=== PATIENT | female | born 1955 | race Caucasian/White ===

== ENCOUNTER 2022-07-11 14:57 | Outpatient (OUT) | payer MEDICARE, SELFPAY ==
--- NOTE | 2022-07-11 15:00 | VEIN_ITS ---
Patient: JEIMY GREEN Exam Date: 07/11/2022 : 1955 Gender:F Ordering : DR YARED OLIVAS M.D. Admission #: [id number] Family : Order #: [id number] CLICK HERE TO VIEW EXAM RADIOLOGY REPORT PROCEDURE: [facility] EST [facility] - OFFICE VISIT FOLLOW UP COMPARISON: None. PROGRESS NOTES: The patient reports improvement in leg symptoms. There has been interval reduction in varicosities. The patient has followed our recommendations to walk 20-30 minutes once or twice per day since the procedure. Physical exam demonstrates decrease in varicosities of the bilateral legs. Persistent varicosities are identified along the legs bilaterally. Review of the ultrasound performed the same day demonstrates occlusive thrombus extending throughout the treated vein, see separate report, consistent with a successful ablation. No thrombus extending into or beyond the saphenofemoral junction. The patient expressed a desire to proceed with treatment of remaining incompetent branch saphenous varicosities. The patient was informed that treatment was a process and would require approximately 2 more procedures/sessions. IMPRESSION: 1. Successful ablation of the saphenous vein 2. Persistent incompetent branch saphenous veins and mild bilateral lower extremity symptoms PLAN: Microfoam chemical ablation of remaining incompetent branch saphenous varicosities. Nurse notes, history and physical were reviewed and confirmed, see attached forms. The nurse was present throughout the physical exam and consultation Dictated by: Tirso Driscoll M.D. on 07/11/2022 at 15:26 Approved by: Tirso Driscoll M.D. on 07/11/2022 at 15:38
--- NOTE | 2022-07-11 15:00 | VEIN_ITS ---
Patient: JEIMY GREEN Exam Date: 07/11/2022 : 1955 Gender:F Ordering : DR YARED OLIVAS M.D. Admission #: [id number] Family : Order #: [id number] CLICK HERE TO VIEW EXAM RADIOLOGY REPORT PROCEDURE: VC EXT VENOUS RT LMTD COMPARISON: None. INDICATIONS: Phlebitis of superficial veins of rt lower extremity I80.01 TECHNIQUE: Lower extremity douglas scale and Duplex Doppler evaluation of the deep venous system from the inguinal ligament through the calf veins. FINDINGS: REGION: Right lower extremity. THROMBI: Negative for DVT. Varithena induced thrombus visualized at mid/med calf and medial knee. COMPRESSIBILITY: Non-compressible segments. FLOW: Areas of no flow. OTHER: Multiple patent varicose veins remain. CONCLUSION: 1. Successful post ablation occlusion of treated right leg incompetent branch saphenous varicosities. Dictated by: Tirso Driscoll M.D. on 07/11/2022 at 15:25 Approved by: Tirso Driscoll M.D. on 07/11/2022 at 15:26
== END 2022-07-11 14:58 ==
LOC: VC 14:59
PROVIDERS: PCP Radiology Diagnostic Radiology; Visit Provider Radiology Diagnostic Radiology
DX: I80.01 Phlebitis and thrombophlebitis of superficial vessels of right lower extremity (principal); I83.813 Varicose veins of bilateral lower extremities with pain
CPT/HCPCS: 93971; G0463

== ENCOUNTER 2022-07-26 15:28 | Outpatient (OUT) | payer MEDICARE, SELFPAY ==
--- NOTE | 2022-07-26 | VEIN_ITS ---
[address] [address] Patient Name: JEIMY GREEN MRN: [id number] date: 1955 Sex: F Assigned Patient Location: Current Patient Location: Accession/Order Number: [id number] Exam Date: 07/26/2022 15:15 Report Date: 07/26/2022 16:13 At the request of: YARED OLIVAS Procedure: VC INJ Foam Sclerosant WUS INDUSTRIAL RADIOGRAPHER PROCEDURE: VC INJ Foam Sclerosant WUS INDUSTRIAL RADIOGRAPHER COMPARISON: None. HISTORY: Pain due to varicose veins of bilateral legs I83.813 Pre-operative Diagnosis: CEAP class C6 venous insufficiency with pain, tenderness, edema and incompetent branch saphenous vein(s), chronic venous insufficiency left leg secondary to venous incompetence Post-operative Diagnosis: CEAP class C6 venous insufficiency with pain, tenderness, edema and incompetent branch saphenous vein(s), chronic venous insufficiency left leg secondary to venous incompetence Procedure Performed: 1. Ultrasound-guided microfoam chemical ablation with Varithenaregistered 2. Intraoperative ultrasound guidance Physician: Tirso Driscoll M.D. Anesthesia: None Indications for Procedure: 66 year old female. Symptoms including lower extremity pain, throbbing, dilated veins, ulcer for many years despite conservative medical therapy including medical compression stockings, exercise and analgesics. Prior procedures include endovenous laser ablation and microfoam chemical ablation. Multiple incompetent varicosities of the left leg. Duplex scan showed reflux and enlarged diameters up to 6 mm. The patient underwent informed consent including management options where the complications of infection, bleeding, pain, and skin injury were discussed. Particular attention was spent discussing thrombus extension and deep vein thrombosis as well as the possibility of pulmonary embolus and treatment with oral or injectable blood thinners. Procedure: The patient walked to the procedure room. All applicable staff donned appropriate apparel. A procedure timeout was performed to confirm correct patient, correct extremity, correct procedure, and correct room set-up including presence of all applicable supplies, devices, and drugs. A duplex ultrasound, performed by myself confirmed the location and incompetence of branch saphenous varicosities and their course was marked on the skin together with the dilated tributaries. The extent of treatment of the vein and the associated varicosities was determined through ultrasound mapping. The skin was prepped and then punctured with a butterfly needle and advanced under ultrasound guidance. The Varithenaregistered canister was activated and the canister was primed and purged as required in the instructions for use. Varithenaregistered was drawn into a sterile syringe. Varithenaregistered was slowly administered at 0.5-1.0 cc/second with close observation by ultrasound of its course in the vessels. Total volume utilized was: 15 mL (8 mL intravenous 6 mm varicosity medial and cephalad to the ankle; 7 mL intravenous 6 mm varicosity of the proximal medial lower leg). Following administration of Varithenaregistered the leg was elevated and the patient was asked to repeatedly dorsiflex the ankle to limit flow of Varithenaregistered into perforating veins. Once appropriate spasm had been confirmed in the treated veins, the vascular catheter was removed from the leg and light pressure was applied over the puncture site for hemostasis. The common femoral and deep superficial veins were then evaluated for flow and compressibility prior to dressing placement. The lower extremity was kept elevated at 45 degrees above the horizontal and cording material was applied over the saphenous segments and tributaries to allow for eccentric compression over the target vessels including the targeted saphenous vein(s). A multilayer dressing was applied consisting of foam pads, coban and thigh-high 20-30 mm Hg compression elastic support hose were placed on the patient. The leg was lowered only after compression had been applied and the patient was immediately ambulatory. The patient ambulated 10 minutes under supervision and was without apparent concerns at time of release. Post-care instructions include advising patient to keep post-treatment bandages in place and dry for 48 hours, avoid extended periods of inactivity, avoid heavy exercise for one week, wear compression stockings on the treated leg continuously for two weeks, to walk daily for 10 minutes over the next month. The patient was instructed to take an anti-inflammatory medicine as needed and to follow up for color duplex scan of the Saphenous veins, the treated branch saphenous varicosities, the adjacent deep veins, and additional treatment within 7 days. PERSONNEL: Rafiq Ocampo RN,Karon Love RDMS Electronically authenticated by: TIRSO DRISCOLL Date: 07/26/2022 16:13
== END 2022-07-26 15:29 ==
LOC: VC 15:28
PROVIDERS: PCP Radiology Diagnostic Radiology; Visit Provider Radiology Diagnostic Radiology
DX: I83.813 Varicose veins of bilateral lower extremities with pain (principal)
CPT/HCPCS: 36466

== ENCOUNTER 2022-08-02 15:28 | Outpatient (OUT) | payer MEDICARE, SELFPAY ==
--- NOTE | 2022-08-02 | VEIN_ITS ---
Patient: JEIMY GREEN Exam Date: 08/02/2022 : 1955 Gender:F Ordering : DR RIGO MCKNIGHT M.D. Admission #: [id number] Family : Order #: [id number] CLICK HERE TO VIEW EXAM RADIOLOGY REPORT PROCEDURE: [facility]ILITY EST [facility] - OFFICE VISIT FOLLOW UP COMPARISON: [facility] EST LMTD, 07/11/2022. PROGRESS NOTES: The patient reports no significant problems following micro foam chemical ablation of the left leg. Patient did not require oral analgesics. The patient has worn her compression stocking. The patient has followed our recommendations to walk 20-30 minutes once or twice per day since the procedure. Physical exam demonstrates multiple thrombosed varicose veins. Multiple residual patent varicose veins can be observed and palpated. No areas of erythema or warmth to suggest cellulitis or thrombophlebitis. Ulceration Review of the ultrasound performed the same day demonstrates occlusive thrombus extending throughout the treated close veins period residual varicose veins were observed by ultrasound measuring up to 6.7 mm left and 8 mm right. The patient expressed a desire to proceed with treatment of incompetent varicose veins micro chemical ablation. IMPRESSION: 1. Successful ablation of left leg incompetent varicose veins 2. Persistent bilateral incompetent varicose veins PLAN: Micro foam chemical ablation right leg incompetent varicose veins Nurse notes, history and physical were reviewed and confirmed, see attached forms. The nurse was present throughout the physical exam and consultation Dictated by: Rigo Mcknight MD on 08/03/2022 at 07:09 Approved by: Rigo Mcknight MD on 08/03/2022 at 07:11
--- NOTE | 2022-08-02 | VEIN_ITS ---
Patient: JEIMY GREEN Exam Date: 08/02/2022 : 1955 Gender:F Ordering : DR RIGO OLIVAS M.D. Admission #: [id number] Family : Order #: [id number] CLICK HERE TO VIEW EXAM RADIOLOGY REPORT PROCEDURE: VC EXT VENOUS LT LIMITED COMPARISON: None. INDICATIONS: Phlebitis of superficial veins of left lower extremity I80.02 TECHNIQUE: Lower extremity douglas scale and Duplex Doppler evaluation of the deep venous system from the inguinal ligament through the calf veins. FINDINGS: REGION: Left lower extremity. THROMBI: Negative for DVT. Chemically induced thrombus in varicose veins medial lower leg. COMPRESSIBILITY: Noncompressible segments corresponding to throw FLOW: Absent flow corresponding thrombus OTHER: Patent varicose vein mid fong measures 6.7 mm. Varicose vein mid medial lower leg measures 5.9 mm. *Exam performed in accordance with [facility] practice guidelines- Peripheral venous ultrasound, May 01, 2009. CONCLUSION: Post ablation occlusion of treated left leg varicose veins with residual varicose veins measuring to 6.7 mm Dictated by: Rigo Olivas MD on 08/03/2022 at 07:07 Approved by: Rigo Olivas MD on 08/03/2022 at 07:08
== END 2022-08-02 15:29 | disposition home or self-care (01) ==
LOC: VC 15:28
PROVIDERS: PCP Radiology Diagnostic Radiology; Visit Provider Radiology Diagnostic Radiology
DX: I80.02 Phlebitis and thrombophlebitis of superficial vessels of left lower extremity (principal)
CPT/HCPCS: 93971; G0463

== ENCOUNTER 2022-09-06 15:31 | Outpatient (OUT) | payer MEDICARE, SELFPAY ==
--- NOTE | 2022-09-06 | VEIN_ITS ---
The [address] [address] Patient Name: JEIMY GREEN MRN: [id number] date: 1955 Sex: F Assigned Patient Location: Current Patient Location: Accession/Order Number: [id number] Exam Date: 09/06/2022 15:30 Report Date: 09/06/2022 16:20 At the request of: YARED OLIVAS Procedure: VC INJ Foam Sclerosant WUS SKIDDER PROCEDURE: VC INJ Foam Sclerosant WUS SKIDDER HISTORY: Pain due to varicose veins of bilateral legs I83.813 Pre-operative Diagnosis: CEAP class C6 venous insufficiency with pain, tenderness, edema and incompetent branch saphenous vein(s), chronic venous insufficiency ] leg secondary to venous incompetence Post-operative Diagnosis: CEAP class C6 venous insufficiency with pain, tenderness, edema and incompetent branch saphenous vein(s), chronic venous insufficiency right leg secondary to venous incompetence Procedure Performed: 1. Ultrasound-guided microfoam chemical ablation with Varithenaregistered 2. Intraoperative ultrasound guidance Physician: Tirso Driscoll M.D. Anesthesia: None Indications for Procedure: 66 year old female. Symptoms including lower extremity swelling, dilated bulging veins, aching, heaviness for many years despite conservative medical therapy including medical compression stockings, exercise and analgesics. Prior procedures include endovenous laser ablation and Microfoam chemical ablation. Multiple incompetent varicosities of the right leg. Duplex scan showed reflux and enlarged diameters up to 7 mm mm. The patient underwent informed consent including management options where the complications of infection, bleeding, pain, and skin injury were discussed. Particular attention was spent discussing thrombus extension and deep vein thrombosis as well as the possibility of pulmonary embolus and treatment with oral or injectable blood thinners. Procedure: The patient walked to the procedure room. All applicable staff donned appropriate apparel. A procedure timeout was performed to confirm correct patient, correct extremity, correct procedure, and correct room set-up including presence of all applicable supplies, devices, and drugs. A duplex ultrasound, performed by myself confirmed the location and incompetence of branch saphenous varicosities and their course was marked on the skin together with the dilated tributaries. The extent of treatment of the vein and the associated varicosities was determined through ultrasound mapping. The skin was prepped and then punctured with a butterfly needle and advanced under ultrasound guidance. The Varithenaregistered canister was activated and the canister was primed and purged as required in the instructions for use. Varithenaregistered was drawn into a sterile syringe. Varithenaregistered was slowly administered at 0.5-1.0 cc/second with close observation by ultrasound of its course in the vessels. Total volume utilized was: 15 mL (7 mL within a 6 mm incompetent varicosity of the distal anterior lower right leg; 8 mL within a 7 mm incompetent varicosity of the anterior lateral proximal lower leg). Following administration of Varithenaregistered the leg was elevated and the patient was asked to repeatedly dorsiflex the ankle to limit flow of Varithenaregistered into perforating veins. Once appropriate spasm had been confirmed in the treated veins, the vascular catheter was removed from the leg and light pressure was applied over the puncture site for hemostasis. The common femoral and deep superficial veins were then evaluated for flow and compressibility prior to dressing placement. The lower extremity was kept elevated at 45 degrees above the horizontal and cording material was applied over the saphenous segments and tributaries to allow for eccentric compression over the target vessels including the targeted saphenous vein(s). A multilayer dressing was applied consisting of foam pads, coban and thigh-high 20-30 mm Hg compression elastic support hose were placed on the patient. The leg was lowered only after compression had been applied and the patient was immediately ambulatory. The patient ambulated 10 minutes under supervision and was without apparent concerns at time of release. Post-care instructions include advising patient to keep post-treatment bandages in place and dry for 48 hours, avoid extended periods of inactivity, avoid heavy exercise for one week, wear compression stockings on the treated leg continuously for two weeks, to walk daily for 10 minutes over the next month. The patient was instructed to take an anti-inflammatory medicine as needed and to follow up for color duplex scan of the Saphenous veins, the treated branch saphenous varicosities, the adjacent deep veins, and additional treatment within 7 days. PERSONNEL: Rafiq Ocampo RN Electronically authenticated by: TIRSO DRISCOLL Date: 09/06/2022 16:20
== END 2022-09-06 15:32 | disposition home or self-care (01) ==
LOC: VC 15:31
PROVIDERS: PCP Radiology Diagnostic Radiology; Visit Provider Radiology Diagnostic Radiology
DX: I83.813 Varicose veins of bilateral lower extremities with pain (principal)
CPT/HCPCS: 36466

== ENCOUNTER 2022-09-11 15:31 | Outpatient (OUT) | payer MEDICARE, SELFPAY ==
--- NOTE | 2022-09-11 15:32 | VEIN_ITS ---
Patient: JEIMY GREEN Exam Date: 09/11/2022 : 1955 Gender:F Ordering : DR YARED OLIVAS M.D. Admission #: [id number] Family : Order #: [id number] CLICK HERE TO VIEW EXAM RADIOLOGY REPORT PROCEDURE: [facility] EST [facility] - OFFICE VISIT FOLLOW UP COMPARISON: [facility], 08/02/2022. PROGRESS NOTES: The patient reports improvement in leg symptoms. There has been interval reduction in varicosities. The patient has followed our recommendations to walk 20-30 minutes once or twice per day since the procedure. Physical exam demonstrates decrease in varicosities of the leg. Persistent varicosities are identified along the legs. Review of the ultrasound performed the same day demonstrates occlusive thrombus extending throughout the treated vein(s), see separate report, consistent with a successful ablation. No thrombus extending into or beyond the saphenofemoral junction. The patient expressed a desire to proceed with treatment of remaining incompetent branch saphenous varicosities. The patient was informed that treatment was a process and would require 1-2 procedures/sessions. VEIN/[facility] EST LMTD IMPRESSION: 1. Successful ablation of the treated branch saphenous vein(s). 2. Persistent varicose veins and mild bilateral lower extremity symptoms. PLAN: 1. Microfoam chemical ablation of remaining incompetent branch saphenous varicosities within the lower extremities. Nurse notes, history and physical were reviewed and confirmed, see attached forms. The nurse was present throughout the physical exam and consultation Dictated by: Tirso Driscoll M.D. on 09/11/2022 at 16:27 Approved by: Tirso Driscoll M.D. on 09/11/2022 at 16:28
--- NOTE | 2022-09-11 15:33 | VEIN_ITS ---
Patient: JEIMY GREEN Exam Date: 09/11/2022 : 1955 Gender:F Ordering : DR YARED OLIVAS M.D. Admission #: [id number] Family : Order #: [id number] CLICK HERE TO VIEW EXAM RADIOLOGY REPORT PROCEDURE: VC EXT VENOUS RT LMTD COMPARISON: VC EXT VENOUS RT LMTD, 07/11/2022. INDICATIONS: I80.01 Phlebitis of superficial veins of rt lower extremity TECHNIQUE: Lower extremity douglas scale and Duplex Doppler evaluation of the deep venous system from the inguinal ligament through the calf veins. FINDINGS: REGION: Right lower extremity. THROMBI: Negative for DVT. Varithena induced thrombus visualized mid/lateral calf and prox/anterior calf. COMPRESSIBILITY: Non-compressible segments. FLOW: Areas of no flow. OTHER: Multiple varicose veins remain. CONCLUSION: 1. Successful post ablation occlusion of treated branch saphenous varicosities. Dictated by: Tirso Driscoll M.D. on 09/11/2022 at 15:52 Approved by: Tirso Driscoll M.D. on 09/11/2022 at 16:27
== END 2022-09-11 15:32 | disposition home or self-care (01) ==
LOC: VC 15:31
PROVIDERS: PCP Radiology Diagnostic Radiology; Visit Provider Radiology Diagnostic Radiology
DX: I80.01 Phlebitis and thrombophlebitis of superficial vessels of right lower extremity (principal)
CPT/HCPCS: 93971; G0463

== ENCOUNTER 2022-09-18 15:33 | Outpatient (OUT) | payer MEDICARE, SELFPAY ==
--- NOTE | 2022-09-18 15:36 | VEIN_ITS ---
The [address] [address] Patient Name: JEIMY GREEN MRN: [id number] date: 1955 Sex: F Assigned Patient Location: Current Patient Location: Accession/Order Number: [id number] Exam Date: 09/18/2022 15:38 Report Date: 09/18/2022 16:20 At the request of: YARED OLIVAS Procedure: VC INJ Foam Sclerosant WUS REGISTERED NURSE MATERNITY PROCEDURE: VC INJ Foam Sclerosant WUS REGISTERED NURSE MATERNITY HISTORY: Painful varicose veins of bilateral lower extremity I83.813 Pre-operative Diagnosis: CEAP class C6 venous insufficiency with pain, tenderness, edema and incompetent branch saphenous vein(s), chronic venous insufficiency left leg secondary to venous incompetence Post-operative Diagnosis: CEAP class C6 venous insufficiency with pain, tenderness, edema and incompetent branch saphenous vein(s), chronic venous insufficiency left leg secondary to venous incompetence Procedure Performed: 1. Ultrasound-guided microfoam chemical ablation with Varithenaregistered 2. Intraoperative ultrasound guidance Physician: Tirso Driscoll M.D. Anesthesia: None Indications for Procedure: 66 year old female. Symptoms including lower extremity pain, swelling, throbbing, itching, dilated veins for many years despite conservative medical therapy including medical compression stockings, exercise and analgesics. Prior procedures include endovenous laser ablation and microfoam chemical ablation. Multiple incompetent varicosities of the left leg. Duplex scan showed reflux and enlarged diameters up to 5 mm. The patient underwent informed consent including management options where the complications of infection, bleeding, pain, and skin injury were discussed. Particular attention was spent discussing thrombus extension and deep vein thrombosis as well as the possibility of pulmonary embolus and treatment with oral or injectable blood thinners. Procedure: The patient walked to the procedure room. All applicable staff donned appropriate apparel. A procedure timeout was performed to confirm correct patient, correct extremity, correct procedure, and correct room set-up including presence of all applicable supplies, devices, and drugs. A duplex ultrasound, performed by myself confirmed the location and incompetence of branch saphenous varicosities and their course was marked on the skin together with the dilated tributaries. The extent of treatment of the vein and the associated varicosities was determined through ultrasound mapping. The skin was prepped and then punctured with a butterfly needle and advanced under ultrasound guidance. The Varithenaregistered canister was activated and the canister was primed and purged as required in the instructions for use. Varithenaregistered was drawn into a sterile syringe. Varithenaregistered was slowly administered at 0.5-1.0 cc/second with close observation by ultrasound of its course in the vessels. Total volume utilized was: 15 mL (8 mL within an incompetent 5 mm varicosity of the distal anterior lower leg; 7 mL into an incompetent 5 mm varicosity of the proximal medial lower leg). Following administration of Varithenaregistered the leg was elevated and the patient was asked to repeatedly dorsiflex the ankle to limit flow of Varithenaregistered into perforating veins. Once appropriate spasm had been confirmed in the treated veins, the vascular catheter was removed from the leg and light pressure was applied over the puncture site for hemostasis. The common femoral and deep superficial veins were then evaluated for flow and compressibility prior to dressing placement. The lower extremity was kept elevated at 45 degrees above the horizontal and cording material was applied over the saphenous segments and tributaries to allow for eccentric compression over the target vessels including the targeted saphenous vein(s). A multilayer dressing was applied consisting of foam pads, coban and thigh-high 20-30 mm Hg compression elastic support hose were placed on the patient. The leg was lowered only after compression had been applied and the patient was immediately ambulatory. The patient ambulated 10 minutes under supervision and was without apparent concerns at time of release. Post-care instructions include advising patient to keep post-treatment bandages in place and dry for 48 hours, avoid extended periods of inactivity, avoid heavy exercise for one week, wear compression stockings on the treated leg continuously for two weeks, to walk daily for 10 minutes over the next month. The patient was instructed to take an anti-inflammatory medicine as needed and to follow up for color duplex scan of the Saphenous veins, the treated branch saphenous varicosities, the adjacent deep veins, and additional treatment within 7 days. PERSONNEL: Rafiq Ocampo RN Electronically authenticated by: TIRSO DRISCOLL Date: 09/18/2022 16:20
== END 2022-09-18 15:34 | disposition home or self-care (01) ==
LOC: VC 15:33
PROVIDERS: PCP Radiology Diagnostic Radiology; Visit Provider Radiology Diagnostic Radiology
DX: I83.813 Varicose veins of bilateral lower extremities with pain (principal)
CPT/HCPCS: 36466

== ENCOUNTER 2022-09-25 15:30 | Outpatient (OUT) | payer MEDICARE, SELFPAY ==
--- NOTE | 2022-09-25 15:34 | VEIN_ITS ---
Patient: JEIMY GREEN Exam Date: 09/25/2022 : 1955 Gender:F Ordering : DR YARED OLIVAS M.D. Admission #: [id number] Family : Order #: [id number] CLICK HERE TO VIEW EXAM RADIOLOGY REPORT PROCEDURE: [facility] EST L[facility]D [facility]IN CENTER - OFFICE VISIT FOLLOW UP COMPARISON: [facility], 09/11/2022. PROGRESS NOTES: The patient reports improvement in leg symptoms. There has been interval reduction in varicosities. The patient has followed our recommendations to walk 20-30 minutes once or twice per day since the procedure. Physical exam demonstrates decrease in varicosities of the leg. Persistent superficial varicosities are identified along the legs bilaterally. Review of the ultrasound performed the same day demonstrates occlusive thrombus extending throughout the treated vein(s), see separate report, consistent with a successful ablation. No thrombus extending into or beyond the saphenofemoral junction. The patient expressed a desire to proceed with treatment of remaining incompetent branch saphenous varicosities. The patient was informed that treatment was a process and would require several procedures/sessions. VEIN/[facility] EST LMTD IMPRESSION: 1. Successful ablation of the left lower extremity treated branch saphenous vein(s). 2. Persistent incompetent branch saphenous veins and bilateral lower extremity symptoms. PLAN: Microfoam chemical ablation of right lower extremity incompetent branch saphenous varicosities. Nurse notes, history and physical were reviewed and confirmed, see attached forms. The nurse was present throughout the physical exam and consultation Dictated by: Tirso Driscoll M.D. on 09/25/2022 at 16:00 Approved by: Tirso Driscoll M.D. on 09/25/2022 at 16:01
--- NOTE | 2022-09-25 15:34 | VEIN_ITS ---
Patient: JEIMY GREEN Exam Date: 09/25/2022 : 1955 Gender:F Ordering : DR YARED OLIVAS M.D. Admission #: [id number] Family : Order #: [id number] CLICK HERE TO VIEW EXAM RADIOLOGY REPORT PROCEDURE: VC EXT VENOUS LT LIMITED COMPARISON: VC EXT VENOUS LT LIMITED, 08/02/2022. INDICATIONS: I80.02 Phlebitis of superficial veins of lt lower extremity TECHNIQUE: Lower extremity douglas scale and Duplex Doppler evaluation of the deep venous system from the inguinal ligament through the calf veins. FINDINGS: REGION: Left lower extremity. THROMBI: Negative for DVT. Chemically induced thrombus in multiple varicose veins in left leg. COMPRESSIBILITY: Non-compressible segments. FLOW: Areas of no flow. OTHER: Multiple varicose veins remain. Largest is proximal posterior calf and measures 7.0 mm. CONCLUSION: 1. Successful post ablation occlusion of treated left leg incompetent branch saphenous varicosities. Dictated by: Tirso Driscoll M.D. on 09/25/2022 at 15:59 Approved by: Tirso Driscoll M.D. on 09/25/2022 at 16:00
== END 2022-09-25 15:31 | disposition home or self-care (01) ==
LOC: VC 15:31
PROVIDERS: PCP Radiology Diagnostic Radiology; Visit Provider Radiology Diagnostic Radiology
DX: I80.02 Phlebitis and thrombophlebitis of superficial vessels of left lower extremity (principal)
CPT/HCPCS: 93971; G0463

== ENCOUNTER 2022-10-03 15:36 | Outpatient (OUT) | payer MEDICARE, SELFPAY ==
--- NOTE | 2022-10-03 15:37 | VEIN_ITS ---
[address] [address] Patient Name: JEIMY GREEN MRN: [id number] date: 1955 Sex: F Assigned Patient Location: Current Patient Location: Accession/Order Number: [id number] Exam Date: 10/03/2022 15:38 Report Date: 10/03/2022 16:41 At the request of: YARED OLIVAS Procedure: VC INJ Foam Sclerosant WUS BLACK TOP ROLLER PROCEDURE: VC INJ Foam Sclerosant WUS BLACK TOP ROLLER HISTORY: I83.813 Pain due to varicose veins of bilateral legs Pre-operative Diagnosis: CEAP class C6 venous insufficiency with pain, tenderness, edema and incompetent branch saphenous vein(s), chronic venous insufficiency right leg secondary to venous incompetence Post-operative Diagnosis: CEAP class C6 venous insufficiency with pain, tenderness, edema and incompetent branch saphenous vein(s), chronic venous insufficiency right leg secondary to venous incompetence Procedure Performed: 1. Ultrasound-guided microfoam chemical ablation with Varithenaregistered 2. Intraoperative ultrasound guidance Physician: Tirso Driscoll M.D. Anesthesia: None Indications for Procedure: 66 year old female. Symptoms including dilated bulging veins, lower extremity cramping, pain, swelling for many years despite conservative medical therapy including medical compression stockings, exercise and analgesics. Prior procedures include endovenous laser ablation and Microfoam chemical ablation. Multiple incompetent varicosities of the right leg. Duplex scan showed reflux and enlarged diameters up to 5 mm. The patient underwent informed consent including management options where the complications of infection, bleeding, pain, and skin injury were discussed. Particular attention was spent discussing thrombus extension and deep vein thrombosis as well as the possibility of pulmonary embolus and treatment with oral or injectable blood thinners. Procedure: The patient walked to the procedure room. All applicable staff donned appropriate apparel. A procedure timeout was performed to confirm correct patient, correct extremity, correct procedure, and correct room set-up including presence of all applicable supplies, devices, and drugs. A duplex ultrasound, performed by myself confirmed the location and incompetence of branch saphenous varicosities and their course was marked on the skin together with the dilated tributaries. The extent of treatment of the vein and the associated varicosities was determined through ultrasound mapping. The skin was prepped and then punctured with a butterfly needle and advanced under ultrasound guidance. The Varithenaregistered canister was activated and the canister was primed and purged as required in the instructions for use. Varithenaregistered was drawn into a sterile syringe. Varithenaregistered was slowly administered at 0.5-1.0 cc/second with close observation by ultrasound of its course in the vessels. Total volume utilized was: 15 mL (8 mL into a 4 mm varicosity of the proximal medial lower leg; 7 mL into a 5 mm varicosity of the proximal lateral lower leg). Following administration of Varithenaregistered the leg was elevated and the patient was asked to repeatedly dorsiflex the ankle to limit flow of Varithenaregistered into perforating veins. Once appropriate spasm had been confirmed in the treated veins, the vascular catheter was removed from the leg and light pressure was applied over the puncture site for hemostasis. The common femoral and deep superficial veins were then evaluated for flow and compressibility prior to dressing placement. The lower extremity was kept elevated at 45 degrees above the horizontal and cording material was applied over the saphenous segments and tributaries to allow for eccentric compression over the target vessels including the targeted saphenous vein(s). A multilayer dressing was applied consisting of foam pads, coban and thigh-high 20-30 mm Hg compression elastic support hose were placed on the patient. The leg was lowered only after compression had been applied and the patient was immediately ambulatory. The patient ambulated 10 minutes under supervision and was without apparent concerns at time of release. Post-care instructions include advising patient to keep post-treatment bandages in place and dry for 48 hours, avoid extended periods of inactivity, avoid heavy exercise for one week, wear compression stockings on the treated leg continuously for two weeks, to walk daily for 10 minutes over the next month. The patient was instructed to take an anti-inflammatory medicine as needed and to follow up for color duplex scan of the Saphenous veins, the treated branch saphenous varicosities, the adjacent deep veins, and additional treatment within 7 days. PERSONNEL: NE Bell RN Electronically authenticated by: TIRSO DRISCOLL Date: 10/03/2022 16:41
== END 2022-10-03 15:37 | disposition home or self-care (01) ==
LOC: VC 15:36
PROVIDERS: PCP Radiology Diagnostic Radiology; Visit Provider Radiology Diagnostic Radiology
DX: I83.813 Varicose veins of bilateral lower extremities with pain (principal)
CPT/HCPCS: 36466

== ENCOUNTER 2022-10-10 15:30 | Outpatient (OUT) | payer MEDICARE, SELFPAY ==
--- NOTE | 2022-10-10 15:32 | VEIN_ITS ---
Patient: JEIMY GREEN Exam Date: 10/10/2022 : 1955 Gender:F Ordering : DR RIGO MCKNIGHT M.D. Admission #: [id number] Family : Order #: [id number] CLICK HERE TO VIEW EXAM RADIOLOGY REPORT PROCEDURE: VC EXT VENOUS RT LMTD COMPARISON: VC EXT VENOUS RT LMTD, 09/11/2022. VC EXT VENOUS RT LMTD, 07/11/2022. INDICATIONS: I80.01 Phlebitis of superficial veins of rt lower extremity TECHNIQUE: Lower extremity douglas scale and Duplex Doppler evaluation of the deep venous system from the inguinal ligament through the calf veins. FINDINGS: REGION: Right lower extremity. THROMBI: Negative for DVT. Varithena induced thrombus visualized at prox/ant calf and mid/lat calf. COMPRESSIBILITY: Non-compressible segments corresponding to thrombus. FLOW: Absent flow corresponding to thrombus OTHER: Multiple varicose veins remain largest measuring 6.7mm with 0.8s reflux. CONCLUSION: Post ablation occlusion of treated varicose veins with residual incompetent varicose veins measuring up to 6.7 mm in diameter Dictated by: Rigo Mcknight MD on 10/10/2022 at 15:49 Approved by: Rigo Mcknight MD on 10/10/2022 at 15:50
--- NOTE | 2022-10-10 15:32 | VEIN_ITS ---
Patient: JEIMY GREEN Exam Date: 10/10/2022 : 1955 Gender:F Ordering : DR RIGO MCKNIGHT M.D. Admission #: [id number] Family : Order #: [id number] CLICK HERE TO VIEW EXAM RADIOLOGY REPORT PROCEDURE: [facility] EST L[facility]D [facility] CENTER - OFFICE VISIT FOLLOW UP COMPARISON: [facility] EST LMTD, 09/25/2022. FACILITY EST LMTD, 09/11/2022. PROGRESS NOTES: The patient reports no significant problems following micro foam chemical ablation of the right leg. The patient does report some mild tenderness. The patient was able to wear her compression stockings. The patient did not require oral analgesics. The patient did try to walk as directed. Physical exam demonstrates mild to moderate hemosiderin staining. Patient was instructed to refrain from sun exposure with the use of clothing or mechanical sunblock to reduce permanent staining. Multiple thrombosed varicose veins can be palpated. Extensive patent bilateral varicose veins remain, left greater than right. No areas of erythema or warmth to suggest cellulitis or thrombophlebitis. No active ulceration Review of the ultrasound performed the same day demonstrates occlusive thrombus extending throughout the treated right leg varicose veins. No deep vein thrombus The patient expressed a desire to proceed with treatment of residual incompetent varicose veins. VEIN/ Facility EST LMTD IMPRESSION: 1. Successful ablation of treated right leg varicose veins. 2. Persistent bilateral incompetent patent varicose veins. PLAN: Micro foam chemical ablation left leg Nurse notes, history and physical were reviewed and confirmed, see attached forms. The nurse was present throughout the physical exam and consultation Dictated by: Rigo Mcknight MD on 10/10/2022 at 15:53 Approved by: Rigo Mcknight MD on 10/10/2022 at 15:58
== END 2022-10-10 15:31 | disposition home or self-care (01) ==
LOC: VC 15:31
PROVIDERS: PCP Radiology Diagnostic Radiology; Visit Provider Radiology Diagnostic Radiology
DX: I80.01 Phlebitis and thrombophlebitis of superficial vessels of right lower extremity (principal)
CPT/HCPCS: 93971; G0463